=== PATIENT | female | born 1990 | race Two or more races ===

== ENCOUNTER 2021-06-09 01:05 | Emergency (ER) | payer SELFPAY ==
[~2021-06-09] VITALS: Ht 165.1 cm; Wt 95.3 kg
--- NOTE | 2021-06-09 01:15 | NUR ---
ESTHER AND [employer] BROUGHT FROM BAR, C/O ALCOHOL INTOXICATION. PT'S BREATHING IS EVEN AND UNLABORED, PATIENT DOES NOT RESPOND TO QUESTIONS DESPITE NORMAL VS. PT ATTACHED TO MONITOR AND PULSE OX. WILL CONT TO MONITOR
--- NOTE | 2021-06-09 10:48 | NUR ---
SET UP TRANSPORT WITH [facility] AT [phone] TO HOME. ETA IS 1 HOUR
--- NOTE | 2021-06-09 11:10 | NUR ---
pt amb gait steady sister called will pick her up cont to monitor
[2021-06-09 11:46] VITALS: BP 117/73
--- NOTE | 2021-06-09 11:47 | NUR ---
Patient discharged to home in stable condition. Written and verbal after care instructions given. Patient verbalizes understanding of instruction.
== END 2021-06-09 11:48 | disposition home or self-care (01) ==
LOC: ER 01:12
DX: F10.129 Alcohol abuse with intoxication, unspecified (principal); Z60.2 Problems related to living alone; Y90.9 Presence of alcohol in blood, level not specified
CPT/HCPCS: 82962-TC